=== PATIENT | male | born 1980 | race Two or more races ===

== ENCOUNTER 2020-07-15 21:44 | Emergency (ER) | payer OTHER, SELFPAY ==
--- NOTE | 2020-07-15 | XR_ITS ---
EXAMINATION: XR SHOULDER, RIGHT CLINICAL INFORMATION: Shoulder pain COMPARISON: None TECHNIQUE: AP external rotation, Grashey, scapular Y, and axillary views of the right shoulder. FINDINGS: The bones and soft tissues are normal. No fracture. Glenohumeral and acromioclavicular alignment is anatomic with normal joint space. No abnormal soft tissue calcifications. XR/XR shoulder RT min 2V IMPRESSION: Normal right shoulder.
[2020-07-15 21:49] VITALS: BP 149/90; PULSE 81; RESP 18; TEMP 37.3; O2SAT 98; BMI 41.5
--- NOTE | 2020-07-15 21:59 | ED_ITS ---
HPI - Extremity Problem General Chief complaint: Extremity Injury, Upper Stated complaint: shoulder pain Time Seen by Provider: 07/15/20 21:49 Source: patient Mode of arrival: ambulatory Limitations: no limitations History of Present Illness MD Complaint: extremity pain Onset (ago): week(s) Pain Consistency: intermittent Location: right and upper extremity Quality: aching Radiation: none Relieving factors: nothing Exacerbating factors: range of motion and weight bearing Associated symptoms: denies other symptoms Related Data Home Medications Medication Instructions Recorded Confirmed albuterol sulfate [ProAir HFA] 2 puff INHALATION Q6H PRN 04/07/20 04/07/20 fluticasone propion-salmeterol 1 inh INHALATION BID 04/07/20 04/07/20 [Advair Diskus] fluticasone propionate [Flonase] 1 spray INTRANASAL DAILY 04/07/20 04/07/20 Previous Rx's Medication Instructions Recorded cyclobenzaprine 10 mg PO TID PRN #14 tab 07/15/20 ibuprofen 600 mg PO Q6H PRN #30 tab 07/15/20 lidocaine 1 patch TOPICAL DAILY PRN #10 ea 07/15/20 Allergies Allergy/AdvReac Type Severity Reaction Status Date / Time No Known Allergies Allergy Verified 07/15/20 21:49 Review of Systems Review of Systems: Constitutional : No Fever, No Chills Cardiovascular : No Chest Pain, No SOB Respiratory : No Cough, No Dyspnea Gastrointestinal : No Nausea, No Vomiting, No Diarrhea, No abdominal Pain Musculoskeletal : positive joint pain, No Myalgias, No Joint Swelling Skin : No Skin lacerations, No rash Neuro : No Weakness, No Numbness, No Loss of Consciousness, No Dizziness, No Headache PMFSH Past Medical History Attestation statement: The following information was validated with the patient. Medical History Asthma Lab test negative for COVID-19 virus Surgical History No pertinent past surgical history Family History Family History (Updated 03/31/20 @ 14:34 by PETE Luong) Father Cardiac disease Mother Arthritis Social History Social History Smoking Status: Never smoker Advance Directives: No Advance Directives Information Provided: No Physical Exam Vital Signs: Vital Signs: Last Vital Signs Temp 99.1 F 07/15/20 21:49 Pulse 81 07/15/20 21:49 Resp 18 07/15/20 21:49 BP 149/90 H 07/15/20 21:49 Pulse Ox 98 07/15/20 21:49 Body Mass Index 41.5 Appearance: Alert. Oriented X3. No acute distress. Eyes: Pupils equal, round and reactive to light. ENT: Pharynx normal. Neck: Normal inspection. Neck supple. CVS: Normal heart rate and rhythm. Pulses normal. Respiratory: No respiratory distress. Breath sounds normal. Abdomen: Soft and nontender. Skin: Skin warm and dry. Normal skin color. Normal skin turgor. Extremities: No lower extremity edema. No calf ttp R shoulder pain with abduction and internal rotation testing, distal NV intact, no swelling or deformity Neuro: Oriented X 3. No motor deficit. No sensory deficit. MDM - Extremity (Nontraumatic) MDM Narrative Medical decision making narrative: patient c/o R shoulder pain for weeks - no trauma, NV intact, no signs of infection - will obtain xray to evaluate for arthritis, patient has testing concerning for rotator cuff issues - discussed need for follow up with PCP and possible MRI Discharge Plan Discharge Clinical Impression: Arthralgia Qualifiers: Joint pain location: shoulder Laterality: right Qualified Code(s): M25.511 - Pain in right shoulder Patient Disposition: Home, Self-Care Additional Instructions: return to ED for any worsening symptoms or concerns if this persists you need to see your doctor for possible physical therapy and MRI of rotator cuff Prescriptions: New cyclobenzaprine 10 mg tablet 10 mg PO TID PRN (Reason: muscle spasm) Qty: 14 RF: 0 lidocaine 4 % adhesive patch,medicated 1 patch topical DAILY PRN (Reason: pain) Qty: 10 RF: 0 ibuprofen 600 mg tablet 600 mg PO Q6H PRN (Reason: pain) Qty: 30 RF: 0 No Action albuterol sulfate [ProAir HFA] 90 mcg/actuation Hfa Aerosol Inhaler 2 puff INHALATION Q6H PRN (Reason: Wheezing) RF: 0 fluticasone propion-salmeterol [Advair Diskus] 100-50 mcg/dose Blister With Device 1 inh INHALATION BID RF: 0 fluticasone propionate [Flonase] 50 mcg/actuation [place],Suspension 1 spray INTRANASAL DAILY RF: 0 Referrals: Adrian Canela MD [Primary Care Provider] - 5 days Stand Alone Forms: Work/School Release
[2020-07-15] MEDS: Lidocaine 4 % Patch ADH..PATCH 1 PATCH TRANSDERMA (22:30)
== END 2020-07-15 22:37 | disposition home or self-care (01) ==
PROVIDERS: Emergency Provider Emergency Medicine; PCP Internal Medicine
DX: M25.511 Pain in right shoulder (principal); Z79.899 Other long term (current) drug therapy
CPT/HCPCS: 73030; 99284

== ENCOUNTER 2020-08-31 10:26 | Outpatient (REF) | payer OTHER, SELFPAY | END 2020-08-31 10:27 | disposition home or self-care (01) | LOC: HO.LAB 10:26 | PROVIDERS: Visit Provider Internal Medicine | DX: Z20.822 Contact with and (suspected) exposure to COVID-19 (principal) | CPT/HCPCS: 36415; C9803; U0003; U0005 ==

== ENCOUNTER 2021-04-06 22:41 | Emergency (ER) | payer OTHER, SELFPAY ==
--- NOTE | ~2021-04-06 | XR_ITS ---
EXAMINATION: XR FOOT, LEFT CLINICAL INFORMATION: Pain. COMPARISON: None TECHNIQUE: AP, lateral, and oblique views of the left foot. FINDINGS: Diffuse soft tissue edema without evidence of radiopaque foreign bodies or joint effusion. No acute fractures or malalignment. XR/XR foot LT 2V IMPRESSION: No acute fractures or malalignment.
[2021-04-06 23:46] VITALS: BP 139/85; PULSE 72; RESP 16; TEMP 36.9; O2SAT 96; BMI 37.1
--- NOTE | 2021-04-07 00:35 | ED_ITS ---
HPI - Extremity Injury (Lower) General Chief Complaint: Extremity Injury, Lower Stated Complaint: Foot pain Time Seen by Provider: 04/07/21 01:23 Source: patient Mode of arrival: ambulatory Limitations: no limitations History of Present Illness HPI Narrative: 41-year-old male presents with left foot pain. States that the bottom at the ball of his foot between his toes. States that he feels swelling, and the pain is worse when he is stepping forward with his heel off the ground. He does not report any injury, history of gout, or diabetes. MD complaint: foot injury Onset (ago): day(s) (2) Type of Injury: unknown Place: home Severity: moderate Severity scale (1-10): 6 Relieving factors: nothing Exacerbating factors: weight bearing, movement and palpation Associated symptoms: swelling and able to partially bear weight Other symptoms: other (Burning tingling pain) Related Data Home Medications Medication Instructions Recorded Confirmed albuterol sulfate 90 mcg/actuation 2 puff INHALATION Q6H PRN 04/07/20 04/07/20 aerosol inhaler (ProAir HFA) fluticasone 100 mcg-salmeterol 50 1 inh INHALATION BID 04/07/20 04/07/20 mcg/dose blistr powdr for inhalation (Advair Diskus) fluticasone propionate 50 1 spray INTRANASAL DAILY 04/07/20 04/07/20 mcg/actuation nasal spray,suspension Previous Rx's Medication Instructions Recorded cyclobenzaprine 10 mg tablet 10 mg PO TID PRN #14 tab 07/15/20 ibuprofen 600 mg tablet 600 mg PO Q6H PRN #30 tab 07/15/20 lidocaine 4 % topical patch 1 patch TOPICAL DAILY PRN #10 ea 07/15/20 Allergies Allergy/AdvReac Type Severity Reaction Status Date / Time No Known Allergies Allergy Verified 04/06/21 23:46 [facility] Past Medical History Attestation statement: The following information was validated with the patient. Source: old records reviewed Medical History Asthma Lab test negative for COVID-19 virus Surgical History No pertinent past surgical history Family History Family History Father Cardiac disease Mother Arthritis Social History Social History Advance Directives: No Advance Directives Information Provided: Yes Physical Exam Vital Signs: Vital Signs: Last Vital Signs Temp 98.5 F 04/06/21 23:46 Pulse 72 04/06/21 23:46 Resp 16 04/06/21 23:46 BP 139/85 04/06/21 23:46 Pulse Ox 96 04/06/21 23:46 Body Mass Index 37.1 Appearance: Alert. Oriented X3. No acute distress. Eyes: Pupils equal, round and reactive to light. ENT: Pharynx normal. Neck: Normal inspection. Neck supple. CVS: Normal heart rate and rhythm. Pulses normal. Respiratory: No respiratory distress. Breath sounds normal. Abdomen: Soft and nontender. Skin: Skin warm and dry. Normal skin color. Normal skin turgor. Extremities: No lower extremity edema. Tenderness noted to the left foot on the plantar surface between the 2nd and 3rd metatarsal just below the joint. No wounds or lesions noted. No indication of gout, no tophi or swelling to the flanges. Full range of motion. Neuro: No motor deficit. No sensory deficit. Cranial nerves 2-12 intact. Course Course Course Narrative: 41-year-old male presents with left-sided foot pain, at the ball of his foot between his metatarsals. No reported injury. No history of gout or diabetes. No wounds or lesions noted to the bottom of the foot. X-rays are negative. Physical exam is consistent with possible neuroma. Will have patient follow-up with Podiatry. Will give patient a cane to help with ambul ation. Patient verbalizes understanding of and agrees to plan of care discharge home. MDM - Extremity Injury (Lower) MDM Narrative Medical decision making narrative: Neuroma, gout Differential Diagnosis Differential diagnosis: Likely ankle sprain and strain, fracture of toe and ankle fracture Medical Records Attestation: I reviewed the patient's medical records. Imaging Data Left foot x-ray: Attestation: I personally reviewed and interpreted this imaging study as follows: Radiologist's impression: EXAMINATION: XR FOOT, LEFT CLINICAL INFORMATION: Pain.? COMPARISON: None? TECHNIQUE: AP, lateral, and oblique views of the left foot. FINDINGS: Diffuse soft tissue edema without evidence of radiopaque foreign bodies or joint effusion. No acute fractures or malalignment.? XR/XR foot LT 2V IMPRESSION: No acute fractures or malalignment. Discharge Plan Discharge Clinical Impression: Neuroma Acute foot pain Qualifiers: Laterality: left Qualified Code(s): M79.672 - Pain in left foot Patient Disposition: Home, Self-Care Instructions: Lopez Neuroma (ED), Metatarsalgia (DC) Additional Instructions: You were evaluated for left foot pain. X-rays are negative for acute findings. Your physical exam may be consistent with a neuroma. Please follow-up with Podiatry. I referred you to Dr. Cadet. Please call and request an appointment. Use Tylenol and Motrin as needed for pain management. Use cane as needed for comfort. Thank you for choosing this emergency department for evaluation. Please follow-up with primary care physician as needed. Return to the emergency department for any new, concerning, or worsening symptoms. Prescriptions: No Action albuterol sulfate [ProAir HFA] 90 mcg/actuation Hfa Aerosol Inhaler 2 puff INHALATION Q6H PRN (Reason: Wheezing) RF: 0 fluticasone propion-salmeterol [Advair Diskus] 100-50 mcg/dose Blister With Device 1 inh INHALATION BID RF: 0 fluticasone propionate [Flonase] 50 mcg/actuation [place],Suspension 1 spray INTRANASAL DAILY RF: 0 cyclobenzaprine 10 mg tablet 10 mg PO TID PRN (Reason: muscle spasm) Qty: 14 RF: 0 lidocaine 4 % adhesive patch,medicated 1 patch topical DAILY PRN (Reason: pain) Qty: 10 RF: 0 ibuprofen 600 mg tablet 600 mg PO Q6H PRN (Reason: pain) Qty: 30 RF: 0 Referrals: Justin Justin [Physician] - 2 days (Left foot pain, suspected neuroma) Stand Alone Forms: Work/School Release Interventions: ED Discharge Assessment Last Done: 04/07/21 01:18
[2021-04-07] MEDS: Ibuprofen 600 MG TABLET PO (01:24)
== END 2021-04-07 01:28 | disposition home or self-care (01) ==
PROVIDERS: Emergency Provider Student in an Organized Health Care Education/Training Program
DX: G57.62 Lesion of plantar nerve, left lower limb (principal); M79.672 Pain in left foot; Z79.899 Other long term (current) drug therapy
CPT/HCPCS: 73620; 99283; 99284

== ENCOUNTER 2021-06-19 21:18 | Emergency (ER) | payer OTHER, SELFPAY ==
--- NOTE | ~2021-06-19 | XR_ITS ---
EXAMINATION: XR CHEST CLINICAL INFORMATION: Cough. COMPARISON: None TECHNIQUE: Frontal view of the chest was obtained. FINDINGS: No significant abnormality is noted involving the heart, lungs, mediastinum, bony thorax or soft tissues. XR/XR chest 1V IMPRESSION: No acute cardiopulmonary process.
[2021-06-19 21:40] VITALS: BP 131/72; PULSE 99; RESP 18; TEMP 36.8; O2SAT 94; BMI 36.3
[2021-06-19 22:23] LABS: COVID-19 Test Positive (Negative); IDNOW Serial# 9DD0AD1C
--- NOTE | 2021-06-20 01:54 | ED.URI ---
HPI - URI/Sore Throat General Chief Complaint: Upper Respiratory Symptoms Stated Complaint: diff breathing; asthma Time Seen by Provider: 06/20/21 00:28 Source: patient Mode of arrival: ambulatory Limitations: no limitations History of Present Illness HPI Narrative: 41-year-old male who presents emergency department for evaluation chest pain, shortness of breath cough, myalgias and weakness. Patient states that he got sick yesterday. He states the symptoms got worse today. States that he has a persistent nonproductive cough. He states he feels short of breath at rest. He has a history of asthma and has been using his inhaler with no relief his shortness of breath. He is also complaining of pleuritic chest pain which is worse with breathing worse with coughing. Denied dyspnea on exertion. He denied nausea, vomiting or diarrhea. States that he is having myalgias and fatigue. The patient received a 2 shot vaccination of Moderna COVID-19 vaccine with his 2nd shot given December 2020. Related Data Home Medications Medication Instructions Recorded Confirmed albuterol sulfate 90 mcg/actuation 2 puff INHALATION Q6H PRN 04/07/20 04/07/20 aerosol inhaler (ProAir HFA) fluticasone 100 mcg-salmeterol 50 1 inh INHALATION BID 04/07/20 04/07/20 mcg/dose blistr powdr for inhalation (Advair Diskus) fluticasone propionate 50 1 spray INTRANASAL DAILY 04/07/20 04/07/20 mcg/actuation nasal spray,suspension Previous Rx's Medication Instructions Recorded cyclobenzaprine 10 mg tablet 10 mg PO TID PRN #14 tab 07/15/20 ibuprofen 600 mg tablet 600 mg PO Q6H PRN #30 tab 07/15/20 lidocaine 4 % topical patch 1 patch TOPICAL DAILY PRN #10 ea 07/15/20 Allergies Allergy/AdvReac Type Severity Reaction Status Date / Time No Known Allergies Allergy Verified 06/19/21 21:40 Review of Systems Review of Systems: Yes all other systems are reviewed and are negative [facility] Past Medical History [facility] Narrative: Past medical history: Asthma, COVID-19 positive 09/20/2019. Past surgical history: None. Social history: The patient denies tobacco, alcohol and drug use. Medical History Asthma Lab test negative for COVID-19 virus Surgical History No pertinent past surgical history Family History Family History Father Cardiac disease Mother Arthritis Social History Social History Advance Directives: No Advance Directives Information Provided: Yes Physical Exam Vital Signs: Vital Signs: Last Vital Signs Temp 98.2 F 06/19/21 21:40 Pulse 99 06/19/21 21:40 Resp 18 06/19/21 21:40 BP 131/72 06/19/21 21:40 Pulse Ox 94 06/19/21 21:40 BMI result Body Mass Index 36.3 Course Course Course Narrative: 41-year-old male who presents emergency department for evaluation of viral illness x2 days. Patient complains of persistent, nonproductive cough, pleuritic chest pain, myalgias, fatigue, shortness of breath but no dyspnea on exertion. Vital signs revealed an O2 saturation of 94% on room air otherwise were unremarkable. Lung exam was clear. Chest x-ray revealed no evidence of pneumonia. COVID-19 test was positive. I did discuss treatment of COVID-19 infection with the patient, this time I do not think that he has pneumonia and he is not hypoxic. Patient does have asthma and obesity do think he would benefit from monoclonal antibody therapy therefore he is referred to the [facility] monoclonal infusion [facility] and [place]. He was given printed and verbal instructions discharged home. MDM - URI/Sore Throat Lab Data Labs: Lab Results 06/19/21 Range/Units 21:47 COVID-19 (ERIC) Positive A (Negative) COVID-19 Clin Com See Note Discharge Plan Discharge Clinical Impression: COVID-19 virus infection Patient Disposition: Home, Self-Care Instructions: COVID-19 (Coronavirus Disease 2019) (ED) Additional Instructions: Your COVID-19 test was positive. Your chest x-ray was normal. Your lung exam was normal. Your O2 saturation on room air was 94%. At this time, I do not think that you have COVID 19 pneumonia. I do think that you would benefit from getting the COVID-19 monoclonal antibodies therefore I am referring you to the [facility] infusion clinic in [facility]. I did send the form to the clinic by e-mail. Please call the number on the bottom of the form today to get more information on scheduling an appointment for this treatment. Take ibuprofen 200 mg pills, 3 pills every 6 hours as needed for pain. Take Tylenol (acetaminophen) 500 mg pills, 2 pills every 4 to 6 hours as needed for pain. You will need to isolate at home for 14 days. Follow-up with your doctor in 2 days. Please return to the emergency department if your symptoms get worse or if you develop any symptoms that are concerning to you. Prescriptions: No Action albuterol sulfate [ProAir HFA] 90 mcg/actuation Hfa Aerosol Inhaler 2 puff INHALATION Q6H PRN (Reason: Wheezing) RF: 0 fluticasone propion-salmeterol [Advair Diskus] 100-50 mcg/dose Blister With Device 1 inh INHALATION BID RF: 0 fluticasone propionate [Flonase] 50 mcg/actuation [place],Suspension 1 spray INTRANASAL DAILY RF: 0 cyclobenzaprine 10 mg tablet 10 mg PO TID PRN (Reason: muscle spasm) Qty: 14 RF: 0 lidocaine 4 % adhesive patch,medicated 1 patch topical DAILY PRN (Reason: pain) Qty: 10 RF: 0 ibuprofen 600 mg tablet 600 mg PO Q6H PRN (Reason: pain) Qty: 30 RF: 0 Stand Alone Forms: Work/School Release
[2021-06-20 02:07] VITALS: BP 140/78; PULSE 96; RESP 16; TEMP 37.4; O2SAT 95
== END 2021-06-20 02:18 | disposition home or self-care (01) ==
PROVIDERS: Emergency Provider Emergency Medicine Emergency Medical Services
DX: U07.1 COVID-19 (principal); R06.02 Shortness of breath
CPT/HCPCS: 36415; 71045; 87635; 99283; 99284

== ENCOUNTER 2023-10-27 18:57 | Emergency (ER) | payer OTHER, SELFPAY ==
--- NOTE | 2023-10-27 18:59 | ED.GENADULT ---
HPI - General Adult General Chief complaint: General Medical Stated complaint: swollen belly button Time Seen by Provider: 10/27/23 19:04 Source: patient Mode of arrival: ambulatory Limitations: no limitations History of Present Illness HPI narrative: Patient is a 43 year old assigned male at with no reported medical history presenting to the emergency department today with a new umbilical bulge. Patient states that he noticed some bulging in his belly button that wasn't there before. Patient denies any dizziness, lightheadedness, abdominal pain, nausea, vomiting, fever, chills, blurry vision, double vision, loss of vision, chest pain, difficulty breathing, shortness of breath, back pain, night sweats, pain with urination, increased urinary frequency, increased urinary urgency, blood in his urine or stool, syncope or a near syncopal episode, recent trauma or falls, bowel incontinence, bladder incontinence, bowel retention, bladder retention, or any other complaints at this time. Onset (ago): day(s) Severity: mild Relieving factors: none Exacerbating factors: none Associated symptoms: denies other symptoms Treatments prior to arrival: none Related Data Home Medications ?Medication ?Instructions ?Recorded ?Confirmed albuterol sulfate 90 mcg/actuation 2 puff inhalation Q6H PRN Wheezing 04/07/20 04/07/20 aerosol inhaler (ProAir HFA) fluticasone 100 mcg-salmeterol 50 1 inh inhalation BID 04/07/20 04/07/20 mcg/dose blistr powdr for inhalation (Advair Diskus) fluticasone propionate 50 1 spray intranasal DAILY 04/07/20 04/07/20 mcg/actuation nasal spray,suspension Previous Rx's ?Medication ?Instructions ?Recorded cyclobenzaprine 10 mg tablet 10 mg PO TID PRN muscle spasm #14 07/15/20 tabs ibuprofen 600 mg tablet 600 mg PO Q6H PRN pain #30 tabs 07/15/20 lidocaine 4 % topical patch 1 patch topical DAILY PRN pain #10 07/15/20 ea Allergies Allergy/AdvReac Type Severity Reaction Status Date / Time No Known Allergies Allergy Verified 10/27/23 19:07 Review of Systems Constitutional: Constitutional: Reports no additional constitutional complaints, Denies chills, Denies fever(s) and Denies night sweats Eyes: Eyes: Reports no additional eye complaints, Denies blurry vision, Denies change in vision, Denies diplopia, Denies eye discharge, Denies loss of vision and Denies eye pain ENT: Denies dizziness Cardiovascular: Cardiovascular: Reports no additional cardiovascular complaints, Denies chest pain, Denies lightheadedness, Denies Loss of Consciousness and Denies dyspnea Respiratory: Respiratory: Reports no additional respiratory complaints and Denies dyspnea Gastrointestinal: Gastrointestinal: Reports no additional gastrointestinal complaints, Denies abdominal pain, Denies melena, Denies hematochezia, Denies change in bowel habits and Denies change in stool character Comments: bulging of the umbilicus Genitourinary: Genitourinary: Reports no additional male genitourinary complaints, Denies hematuria, Denies oliguria, Denies difficulty urinating, Denies dysuria, Denies urinary frequency, Denies urinary hesitancy, Denies urinary incontinence and Denies urinary urgency Musculoskeletal: Musculoskeletal: Reports no additional musculoskeletal complaints, Denies numbness and Denies tingling Neurologic: Denies dizziness, Denies loss of vision, Denies numbness and Denies tingling Psychiatric: Psychiatric: Reports no additional psychiatric complaints Endocrine: Endocrine: Reports no additional endocrine complaints Hematologic/Lymphatic: Hematologic/Lymphatic: Reports no additional hematologic/lymphatic complaints Allergic/Immunologic: Allergic/Immunologic: Reports no additional allergic/immunologic complaints [facility] Past Medical History Attestation statement: The following information was validated with the patient. Source: old records reviewed and nursing notes reviewed Medical History Lab test negative for COVID-19 virus Asthma Surgical History No pertinent past surgical history Family History Family History Father Cardiac disease Mother Arthritis Social History Social History Smoked in Last 30 Days: No Use of substances other than those prescribed or required for medical reasons: No Advance Directives: No Advance Directives Information Provided: No Do you have a plan to hurt others: No Plan Physical Exam ED Vital Signs: Vital Signs - 24 hr 10/27/23 19:06 10/27/23 19:17 Temperature 96.8 F 96.8 F Pulse Rate 95 95 Respiratory Rate 14 14 Blood Pressure 156/83 H 156/83 H Pulse Oximetry 95 95 Oxygen Delivery Method Room Air Room Air BMI result Body Mass Index 43.1 Const General: cooperative, no acute distress, alert and awake Nutritional Appearance: well nourished Orientation/consciousness: patient oriented x3 Limitations: no limitations HENMT Head: Yes normal to inspection and Yes atraumatic Ears: hearing grossly normal bilaterally and external ears normal General nose exam: Normal external nose present, no nasal discharge noted and no epistaxis Face and sinus: Yes normal facial exam, No abrasion and No laceration Mouth: Normal oral and palatal mucosa present, no drooling and no muffled voice Eyes General: appearance normal, both eyes and all related structures Periorbital: periorbital findings normal Eyelids: Yes eyelids normal Conjunctivae: conjunctivae normal Pupils: Equal, round and reactive pupils present EOM: EOMs intact bilaterally Neck Neck: Yes normal visual inspection, Yes full ROM and Yes no lymphadenopathy Chest Chest palpation & inspection: normal inspection of the chest Resp Effort & Inspection: normal respiratory effort and able to speak in complete sentences GI Other: easily reducible umbilical hernia Palpation (GI): Soft to palpation Neuro General: patient oriented x3 and moves all extremities Cranial nerves: Yes Equal, round and reactive pupils present Cognition (Neuro): normal cognition Motor exam (neuro): 5/5 motor strength present throughout Sensory Exam: Normal double simultaneous stimulation for sensation Coordination: [id number] test normal Extrem General: Yes normal to inspection, Yes full ROM and Yes capillary refill normal Psych Appearance: grossly normal Mental Status: mental status grossly normal Affect: normal affect Attitude: cooperative Thought process: Normal thought process present Thought content: Normal thought content present Insight: Good insight present (Psych) Medical Decision Making Medical Decision Making MDM Narrative: Patient is a 43 year old assigned male at with no reported medical history presenting to the emergency department today with a bulging umbilicus. Patient's physical exam showed an easily reducible umbilical hernia. Patient's exam otherwise negative for any acute process. I explained my physical exam findings to the patient. I answered all questions asked by the patient. I stressed the importance of the patient taking his medication as prescribed. I stressed the importance of the patient following up with his primary care provider and a general surgeon. I stressed the importance of the patient returning to the emergency department immediately if his symptoms were to worsen or if he were to develop any dizziness, shortness of breath, difficulty breathing, chest pain, blurry vision, loss of vision, nausea, vomiting, abdominal pain, fever, chills, back pain, or any other complaints. Patient verbalized agreement and understanding with this treatment plan and discharge. Differential Diagnosis Differential Diagnoses: The differential diagnosis associated with the presentation includes Umbilical hernia Admission/Observation Consideration of admission/observation: Escalation of care including admission/observation considered Patient would have been admitted to the hospital had his clinical presentation warranted hospital admission. Discharge Plan Discharge Clinical Impression: Hernia, umbilical Patient Disposition: Home, Self-Care Instructions: Umbilical Hernia (ED) Additional Instructions: Follow up with your primary care provider and a general surgeon. Return to the emergency department immediately if your symptoms worsen or if you develop any dizziness, shortness of breath, difficulty breathing, chest pain, blurry vision, loss of vision, nausea, vomiting, abdominal pain, fever, chills, back pain, or any other complaints. Prescriptions: No Action albuterol sulfate [ProAir HFA] 90 mcg/actuation Hfa Aerosol Inhaler 2 puff INHALATION Q6H PRN (Reason: Wheezing) fluticasone propion-salmeterol [Advair Diskus] 100-50 mcg/dose Blister With Device 1 inh INHALATION BID fluticasone propionate [Flonase] 50 mcg/actuation [place],Suspension 1 spray INTRANASAL DAILY cyclobenzaprine 10 mg tablet 10 mg PO TID PRN (Reason: muscle spasm) Qty: 14 0RF lidocaine 4 % adhesive patch,medicated 1 patch topical DAILY PRN (Reason: pain) Qty: 10 0RF Rx Instructions: may leave on for up to 12 hrs ibuprofen 600 mg tablet 600 mg PO Q6H PRN (Reason: pain) Qty: 30 0RF Referrals: [facility] [place] Group] (Call to establish and follow up with a general surgeon (to repair your hernia).) [facility] [place] Family Medicine [Provider Group] (Call to establish and follow up with a primary care provider. If you already have a primary care provider, please follow up with them.) [facility] [place] Primary CareStefan [Provider Group] [facility] [place] Primary CareNorm [Provider Group] Stand Alone Forms: Work/School Release Interventions: ED Discharge Assessment Last Done: 10/27/23 19:17 Discharge Date/Time: 10/27/23 19:18 Print Language: Lao
[2023-10-27 19:06] VITALS: BP 156/83; PULSE 95; RESP 14; TEMP 36; O2SAT 95; BMI 43.1
[2023-10-27 19:17] VITALS: BP 156/83; PULSE 95; RESP 14; TEMP 36; O2SAT 95
== END 2023-10-27 19:18 | disposition home or self-care (01) ==
PROVIDERS: Emergency Provider Student in an Organized Health Care Education/Training Program
DX: K42.9 Umbilical hernia without obstruction or gangrene (principal)
CPT/HCPCS: 99282; 99284

== ENCOUNTER → 2023-11-28 10:59 | Outpatient (BNVA) | payer OTHER, SELFPAY | PROVIDERS: Visit Provider Surgery ==

== ENCOUNTER 2024-01-30 18:53 | Emergency (ER) | payer OTHER, SELFPAY ==
--- NOTE | ~2024-01-30 | XR_ITS ---
EXAMINATION: XR LUMBOSACRAL SPINE CLINICAL INFORMATION: Pain COMPARISON: None available. TECHNIQUE: Three views of the lumbosacral spine. FINDINGS: Hypoplastic 12th ribs. Counting from the hypoplastic 12th rib, there are 5 lumbar-type vertebrae. The lumbar vertebral bodies demonstrate normal height. Minimal retrolisthesis of L4 over L5. Moderate intervertebral disc space narrowing with small osteophytes and endplate sclerosis at L4-L5 and L5-S1. Additional endplate osteophytes at T12-L1 and L1-L2 with mild intervertebral disc space narrowing. Mild intervertebral disc space narrowing at L2-L3. Degenerative facet arthropathy at multiple levels. The paraspinous soft tissues appear unremarkable. Bilateral sacroiliac joints appear intact. XR/XR lumbar spine 2-3V IMPRESSION: Multilevel lumbar spondylosis with moderate degenerative disc disease at L4-L5 and L5-S1. No compression deformity involving the lumbar spine.
[2024-01-30 19:38] VITALS: BP 179/109; PULSE 87; RESP 18; TEMP 37.3; O2SAT 96; BMI 41.3
--- NOTE | 2024-01-30 19:40 | ED.GENADULT ---
HPI - General Adult General Chief complaint: Back Pain/Injury Stated complaint: R sided abd/ pelvic pain goes to back Time Seen by Provider: 01/31/24 01:53 Source: patient Mode of arrival: ambulatory Limitations: no limitations History of Present Illness ED Provider: Dr. Ben Renae HPI narrative: 43-year-old male with no significant past medical history presents emergency department for evaluation of lower back pain x4 months. The patient does not recount any injury to his back. He states that constant pain to his lower back for the past 4 months. Pain is located in his right lower back and right hip area. He states the pain is a sharp pain which is worse with movement. Pain does not radiate down his right leg. He has had no numbness, weakness, loss of bowel or bladder control. 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 The patient denied fever, chills, nausea, vomiting. Related Data Home Medications ?Medication ?Instructions ?Recorded ?Confirmed albuterol sulfate 90 mcg/actuation 2 puff inhalation Q6H PRN Wheezing 04/07/20 04/07/20 aerosol inhaler (ProAir HFA) fluticasone 100 mcg-salmeterol 50 1 inh inhalation BID 04/07/20 04/07/20 mcg/dose blistr powdr for inhalation (Advair Diskus) fluticasone propionate 50 1 spray intranasal DAILY 04/07/20 04/07/20 mcg/actuation nasal spray,suspension Previous Rx's ?Medication ?Instructions ?Recorded cyclobenzaprine 10 mg tablet 10 mg PO TID PRN muscle spasm #14 07/15/20 tabs ibuprofen 600 mg tablet 600 mg PO Q6H PRN pain #30 tabs 07/15/20 lidocaine 4 % topical patch 1 patch topical DAILY PRN pain #10 07/15/20 ea cyclobenzaprine 10 mg tablet 10 mg PO BEDTIME pain, muscle 01/31/24 spasm #15 tabs Allergies Allergy/AdvReac Type Severity Reaction Status Date / Time No Known Allergies Allergy Verified 01/30/24 19:42 Review of Systems Review of Systems: Yes all other systems are reviewed and are negative PMFSH Past Medical History [facility] Narrative: Social history: The patient works at a [employer]. He denies tobacco, alcohol and drug use Medical History Lab test negative for COVID-19 virus Asthma Surgical History No pertinent past surgical history Family History Family History Father Cardiac disease Mother Arthritis Social History Social History Advance Directives: No Advance Directives Information Provided: No Do you have a plan to hurt others: No Plan Physical Exam ED Vital Signs: Vital Signs - 24 hr 01/30/24 19:38 01/31/24 00:31 Temperature 99.1 F 98.6 F Pulse Rate 87 83 Respiratory Rate 18 20 Blood Pressure 179/109 H 150/88 H Pulse Oximetry 96 95 Oxygen Delivery Method Room Air Room Air BMI result Body Mass Index 41.3 Vital signs revealed an elevated blood pressure of 179/109 Exam: General: Awake, alert in no distress, weight 116.2 with an elevated BMI of 41.3 kg per m2 Head: Normocephalic, atraumatic EENT: PERRL, Lids normal, sclera normal, conjunctiva normal, nose normal , ears normal, throat without erythema or exudates Neck: Supple, no adenopathy Lung: breath sounds symmetric, no wheezing, rales or rhonchi Chest: symmetric movement, nontender Heart: regular rate and rhythm, normal S1, S2 no murmurs or rubs Abdomen: soft, non-tender, nondistended, normal bowel sounds Back: tenderness palpation over his right SI joint, he also has tenderness palpation of the paraspinal muscles over the right lumbar sacral area. There is spasm of these muscles. There is no point vertebral tenderness. He has negative straight leg raises bilaterally. Extremities: no deformities, moves all extremities symmetrically Neuro: Awake, alert, oriented, normal speech, cranial nerves intact, moves all extremities symmetrically Psych: Pleasant, cooperative Course Course Course Narrative: This is an RME: Additional HPI, ROS, PE not included below will be deferred to primary provider. RME assessment and note performed by: Melissa Correa PA-C This is a [id number]-male who presents to the ER with complaints of low back pain. Patient states that he has had ongoing pain for the last several months. Has not seen his PCP for it because he thought it would go away. Pain got worse so he came in. Plan: X-rays Medical Decision Making Medical Decision Making [facility] Narrative: 43-year-old male with no significant past medical history presents emergency department for evaluation of lower back pain x4 months with pain radiating to his right hip. The patient does not recount any injury to his back. Systemic symptoms such as fever, chills, fatigue, myalgias arthralgias. He denied numbness, weakness, pain radiating down his legs. Patient states that his pain got worse today so he came to the emergency department for evaluation. Vital signs revealed elevated blood pressure otherwise unremarkable. Patient does have tenderness patient of his right SI joint, right paraspinal muscles and negative straight leg raises bilaterally. Differential diagnosis: ?Includes but is not limited to musculoskeletal pain, musculoskeletal spasm, degenerative disc disease, degenerative joint disease Course: Patient had x-rays of his lumbar sacral spine which revealed multilevel lumbar spondylosis with moderate degenerative disc disease at L4-L5 and L5-S1 with no compression deformity noted. I did discuss these findings with the patient. The patient will be treated with ibuprofen 400 mg every 6 hours and Tylenol 1000 mg every 6 hours as needed for pain. He was also given a prescription for Flexeril 10 mg at night. He was advised to apply ice to his lower back. The patient will need to follow-up with his PCP to determine if he needs further imaging studies such as MRI or physical therapy to help with his pain. Patient was given printed and verbal instructions. He was also given a work note. Independent Interpretation I performed an independent interpretation of an: Plain X-Ray Interpretation: My interpretation of the patient's lumbar sacral x-rays is as follows: Degenerative disc disease in the L4-L5 and L5-S1 area Radiology Impression Discussion of test interpretation with radiology: I have reviewed the radiologist's reading. Radiologist Impression: XR lumbar spine 2-3V IMPRESSION: Multilevel lumbar spondylosis with moderate degenerative disc disease at L4-L5 and L5-S1. No compression deformity involving the lumbar spine. Dictated By: Chalino Pineda Prescription Management I considered prescription management with: Other (Anti spasmodic medications) Discharge Plan Discharge Clinical Impression: Degenerative disc disease at L5-S1 level, Lumbar pain Patient Disposition: Home, Self-Care Instructions: Acute Low Back Pain (ED), Degenerative Disc Disease (ED) Additional Instructions: Your x-rays of your back did reveal arthritis of the bones of your back. You also have degenerative disc disease of the L4-L5 and L5-S1 discs of your lower back. These findings may be causing your back pain Take ibuprofen 200 mg pills, 2 pills every 6 hours as needed for pain or fever. Take Tylenol (acetaminophen) 500 mg pills, 2 pills every 6 hours as needed for pain or fever. Take Flexeril (cyclobenzaprine) 10 mg pills, 1 pill every at night needed for pain or spasm. ?This medication will make you sleepy. ?Do not drive or work while taking this medication. Apply ice for 15 minutes 4 to 6 times a day to your lower back to help reduce the pain Follow-up with your doctor in 2 days. Please return to the emergency department if your symptoms get worse or if you develop any symptoms that are concerning to you. Please see the work note Your blood pressure was elevated, you will need to follow-up with your doctor for further evaluation and possible treatment for high blood pressure. Prescriptions: New cyclobenzaprine 10 mg tablet 10 mg PO BEDTIME Qty: 15 0RF No Action albuterol sulfate [ProAir HFA] 90 mcg/actuation Hfa Aerosol Inhaler 2 puff INHALATION Q6H PRN (Reason: Wheezing) fluticasone propion-salmeterol [Advair Diskus] 100-50 mcg/dose Blister With Device 1 inh INHALATION BID fluticasone propionate [Flonase] 50 mcg/actuation [place],Suspension 1 spray INTRANASAL DAILY cyclobenzaprine 10 mg tablet 10 mg PO TID PRN (Reason: muscle spasm) Qty: 14 0RF lidocaine 4 % adhesive patch,medicated 1 patch topical DAILY PRN (Reason: pain) Qty: 10 0RF Rx Instructions: may leave on for up to 12 hrs ibuprofen 600 mg tablet 600 mg PO Q6H PRN (Reason: pain) Qty: 30 0RF Stand Alone Forms: Work/School Release Print Language: Tamazight
[2024-01-31 00:31] VITALS: BP 150/88; PULSE 83; RESP 20; TEMP 37; O2SAT 95
[2024-01-31 02:10] VITALS: BP 141/84; PULSE 71; RESP 16; TEMP 37; O2SAT 96
[2024-01-31] MEDS: Ibuprofen 400 MG TABLET PO (02:42)
== END 2024-01-31 06:33 | disposition home or self-care (01) ==
PROVIDERS: Emergency Provider Emergency Medicine Emergency Medical Services
DX: M51.36 Other intervertebral disc degeneration, lumbar region (principal); M54.50 Low back pain, unspecified
CPT/HCPCS: 72100; 99283; 99284

== ENCOUNTER 2024-02-24 08:19 | Outpatient (AMB) | payer OTHER, SELFPAY ==
[2024-02-24 08:21] VITALS: BP 152/102; PULSE 95; O2SAT 99; BMI 41.5
--- NOTE | 2024-02-24 08:21 | A.OFFPC_ITS ---
Vital Signs 02/24/24 08:21 Height 5 ft 6 in Weight 257 lb BMI 41.5 BP 152/102 H Blood Pressure Location Lt brachial Position Sitting Pulse 95 Pulse Source Pulse Oximeter Pulse Oximetry (%) 99 Oxygen Delivery Method Room Air Intake Visit Reasons: Est Care/PE/ Disability Paperwork Intake Note: Patient is a new patient here to establish care Allergies No Known Allergies Allergy (Verified 02/24/24 08:36) Medication List - Last Reconciled 02/24/24 by Liat Lozano PA-C albuterol sulfate 90 mcg/actuation (ProAir HFA) 2 puffs inhalation Q6H PRN cyclobenzaprine 10 mg PO BEDTIME fluticasone propion-salmeterol 100-50 mcg/dose (Advair Diskus) 1 inh inhalation BID fluticasone propionate 50 mcg/actuation 1 spray intranasal DAILY lidocaine 4% 1 patch topical DAILY PRN Tobacco use date assessed: 02/24/24 Dental Screening Dental Screen Date: 02/24/24 Did you have a dental visit in the last 12 months?: No Did you have a dental problem in the last 6 months where you did not have access to dental care?: No Was dental information given to patient?: Patient has dentist HPI Est Care/PE/ Disability Paperwork HPI Details 43-year-old male with no documented past medical history coming to the office for the 1st time.? In review of the nose, patient was seen in [facility] [place] [facility] for evaluation of lower back pain.? X-ray showed multilevel lumbar spondylosis with degenerative disc disease.? Treated with ibuprofen and Tylenol as needed and given Flexeril at night. Today he tells us he continues to have back pain and uses Aleve and Tylenol as well as Flexeril for his pain with mild improvement. He does have a history of asthma which is well controlled in uses albuterol only as needed. He has no other concerns today. [facility] Medical History Lab test negative for COVID-19 virus Asthma Surgical History No pertinent past surgical history Family History Father Cardiac disease Mother Arthritis Maternal Aunt Cancer Social History Housing: House Patient Tobacco Use Status: Never used Tobacco service: No Current occupational status: employed Cognitive needs: Yes (cane ) Hearing needs: No Vision needs: No Questionnaire PHQ-9 Over the last 2 weeks, how often have you been bothered by any of the following problems? 1. Little interest or pleasure in doing things: several days 2. Feeling down, depressed, or hopeless: not at all 3. Trouble falling or staying asleep, or sleeping too much: not at all 4. Feeling tired or having little energy: several days 5. Poor appetite or overeating: not at all 6. Feeling bad about yourself - or that you are a failure or have let yourself or your family down: not at all 7. Trouble concentrating on things, such as reading the newspaper or watching television: not at all 8. Moving or speaking so slowly that other people could have noticed. Or the opposite - being so fidgety or restless that you have been moving around a lot more than usual: not at all 9. Thoughts that you would be better off or of hurting yourself in some way: not at all Total score: 2 Depression Screening Interpretation: Negative Depression Screening Done: Yes 88352 - PHQ-9 Billing: Yes Source: Developed by Drs. Obey Larsen, Bindu Abbott, Jamar Holloway and colleagues, with an educational joann from [employer]. Thrive Questionnaire I am a: Patient What is your living situation today?: I have a steady place to live Within the past 12 months, did the food you bought not last and you didn't have the money to get more?: Never true Within the past 12 months, did you worry whether your food would run out before you got money to buy more?: Never true Do you have trouble paying for medicines?: No Do you have trouble getting transportation to medical appointments?: No Do you have trouble paying your heating and electricity bill?: No Do you have trouble taking care of your child, family member or friend?: No Do you have trouble with day-to-day activities such as bathing, preparing meals, shopping, managing finances, etc.?: No Are you currently unemployed and looking for a job?: No Are you interested in more education?: No Please select the resources that you would like help with: None Currently or been in a relationship where the following occur: No concerns reported THRIVE Score: 0 AUDIT C Alcohol Use Questionnaire (AUDIT-C) 1. How often do you have a drink containing alcohol?: Never 3. How often do you have six or more drinks on one occasion?: Never Total Score: 0 JULIAN-7 AMB Questionnaire JULIAN-7 Date JULIAN - 7 assessed: 02/24/24 Feeling nervous, anxious, or on edge: 0 = Not at all Not being able to stop or control worryin = Not at all Worrying too much about different things: 0 = Not at all Trouble relaxin = Several days Being so restless that it is hard to sit still: 0 = Not at all Becoming easily annoyed or irritable: 0 = Not at all Feeling afraid as if something awful might happen: 0 = Not at all Total JULIAN-7 score (0-4 normal; 5-9 mild; 10-14 moderate; 15-21 severe): 1 Source: Developed by Drs. Obey Larsen, Bindu Abbott, Jamar Holloway and colleagues, with an educational joann from [employer]. JULIAN-7 Assessment Billing JULIAN-7 Assessment Tool: JULIAN-7 Assessment 55625 Review of Systems Const Denies body aches, Denies fatigue, Denies fever(s), Denies frequent falls, Denies headache(s) and Denies weakness Eyes Reports no additional complaints and Denies change in vision ENT Denies dysphagia, Denies dizziness, Denies facial pain, Denies headache(s), Denies nasal congestion and Denies odynophagia Card Denies chest pain, Denies syncope, Denies irregular heart rhythm, Denies leg edema, Denies lightheadedness and Denies dyspnea Resp Denies cough and Denies dyspnea GI Denies constipation, Denies dysphagia, Denies dyspepsia, Denies diarrhea, Denies nausea, Denies odynophagia and Denies vomiting Denies dysuria, Denies urinary frequency, Denies urinary hesitancy and Denies urinary urgency Musc Reports back pain and Denies myalgias Skin/Breast Reports system reviewed and no additional complaints, except as documented Neuro Denies dizziness, Denies syncope, Denies frequent falls, Denies headache(s) and Denies weakness Psych Reports no additional complaints Endo Denies fatigue Physical exam (Primary Care) Vital Signs: Last Vital Signs Pulse 95 02/24/24 08:21 BP 152/102 H 02/24/24 08:21 Pulse Ox 99 02/24/24 08:21 Oxygen Delivery Method Room Air 02/24/24 08:21 BMI result Body Mass Index 41.5 Tobacco/Smoking Status: Tobacco use Status Tobacco use date assessed 02/24/24 02/24/24 08:23 Patient Tobacco Use Status Never used Tobacco 02/24/24 08:33 PHQ-9: PHQ-9 Score PHQ-9: Total score 2 02/24/24 08:23 Depression Screening Interpretation: Negative Currently or been in a relationship where the following occur: No concerns reported Const General: cooperative, healthy appearing, comfortable and no acute distress Orientation/consciousness: patient oriented x3 HENMT Head: Yes normocephalic Ears: hearing grossly normal bilaterally, external ears normal, TM's normal bilaterally and EAC's normal General nose exam: Normal external nose present Face and sinus: Yes normal facial exam and Yes sinuses nontender Mouth: Normal oral and palatal mucosa present and tongue normal Throat: Yes posterior oropharynx normal Eyes General: appearance normal, both eyes and all related structures Conjunctivae: conjunctivae normal Pupils: Equal, round and reactive pupils present EOM: EOMs intact bilaterally and No Nystagmus present Neck Neck: Yes normal visual inspection, Yes full ROM and Yes no lymphadenopathy Chest Chest palpation & inspection: normal inspection of the chest Resp Effort & Inspection: normal respiratory effort Auscultation: clear to auscultation bilaterally, no crackles, no rales, no rhonchi, no wheezes and breath sounds present Cardio Rate: regular rate Rhythm: regular rhythm Peripheral pulses: radial pulses present and dorsalis pedis present GI Inspection: Yes normal to inspection and No Abdominal wall edema Palpation (GI): Soft to palpation, not firm and nontender Auscultation: normal bowel sounds Rectal Exam - Male: Yes deferred General: Yes no CVA tenderness Back/Spine/Pelvis Other: Tenderness to palpation of right paraspinal muscles. Positive right straight leg raise Back: no CVA tenderness Skin General skin exam: no rashes or lesions noted Neuro General: patient oriented x3 Cranial nerves: Yes Equal, round and reactive pupils present, Yes Midline tongue present, Yes Ability to bilaterally elevate shoulders present and No Nystagmus present Gait exam (Neuro): Normal gait present Extrem General: Yes normal to inspection, Yes full ROM, No no pedal edema and No edema Psych Speech and movement: Normal speech and movement present Affect: normal affect Insight: Good insight present (Psych) Judgement: Good judgement present (Psych) Assessment and Plan Assessment & Plan (1) Asthma: Code(s): J45.909 - Unspecified asthma, uncomplicated Plan: Well controlled on Advair Diskus and albuterol as needed. Continue to avoid triggers such as irritants and smoke. (2) Back pain: Code(s): M54.9 - Dorsalgia, unspecified Plan: Patient continues to have back pain and uses Aleve frequently. We will trial meloxicam as needed advised patient he can not take this with any other NSAIDs. Continue on cyclobenzaprine at night. Referral to physical therapy placed and follow up in 6 weeks. (3) Elevated blood pressure reading in office without diagnosis of hypertension: Code(s): R03.0 - Elevated blood-pressure reading, without diagnosis of hypertension Plan: Blood pressure was elevated while in the office today. Discussed lifestyle management such as weight loss and healthy diet as well as decreasing salt intake. We will follow up in 6 weeks for repeat blood pressure check. (4) Annual physical exam: Code(s): Z00.00 - Encounter for general adult medical examination without abnormal findings Plan: Patient is up-to-date on all routine screenings and vaccinations for his age. Ordered for routine blood work and urine. Plan This note was constructed using voice recognition software. While every effort has been made to ensure accuracy and it compliance analyst, still areas may have been included sometimes these areas may affect the content or meeting of the given symptoms. Total time spent caring for the patient today was 30 minutes. This includes time spent before the visit reviewing the chart, time spent during the visit, and time spent after the visit and documentation. Orders: Orders Complete Blood Count Auto Diff Today Z00.00 - Encounter for general adult medical examination without abnormal findings Comprehensive Met. Panel Today Z00.00 - Encounter for general adult medical examination without abnormal findings UA CC w/rflx Micro + Cult Today M54.9 - Dorsalgia, unspecified Free T4 (Free Thyroxine) Today Z00.00 - Encounter for general adult medical examination without abnormal findings TSH reflex Free T4 Today Z00.00 - Encounter for general adult medical examination without abnormal findings Lipid Panel Today Z00.00 - Encounter for general adult medical examination without abnormal findings Vitamin B12 and Folate Today Z00.00 - Encounter for general adult medical examination without abnormal findings Vitamin D 25-OH (D2 and D3) Today Z00.00 - Encounter for general adult medical examination without abnormal findings PT Evaluation and Treatment Today M54.9 - Dorsalgia, unspecified Medications: New meloxicam 15 mg PO DAILY 30 tabs 0RF Discontinued cyclobenzaprine Discontinued Reason: Duplicate 10 mg PO TID PRN 14 tabs 0RF muscle spasm ibuprofen Discontinued Reason: Patient no longer taking 600 mg PO Q6H PRN 30 tabs 0RF pain Coding Level of Care Code New Pt Prev Care 40-64y(55309) Diagnoses Asthma J45.909 Back pain M54.9 Elevated blood pressure reading in office without diagnosis of hypertension R03.0 Annual physical exam Z00.00 Additional Codes JULIAN-7 Assessment Billing - JULIAN-7 Assessment Tool: JULIAN-7 Assessment 23095 ([id number])
== END 2024-02-24 09:04 | disposition home or self-care (01) ==
DX: Z00.00 Encounter for general adult medical examination without abnormal findings (principal); J45.909 Unspecified asthma, uncomplicated; M54.9 Dorsalgia, unspecified; R03.0 Elevated blood-pressure reading, without diagnosis of hypertension
CPT/HCPCS: 99386